=== PATIENT | female | born 1940 | race Caucasian/White ===

== ENCOUNTER → 2018-09-11 | Outpatient (REF) ==
[~2018-09-11] MED LIST: B COMPLEX1 TA2 PO; CALCIUM + D 5001 TAB PO; CALCIUM1 CAP PO; CARVEDILOL12.5 MG PO; CENTRUM SILVER1 CTB PO; CENTRUM SILVER1 TA2 PO; ESTRADIOL1 MG PO; FERROUS SU325 MG/TAB PO; IRON65 M1 PO; METFORMIN500 MG PO; NIACIN500 M3 PO; NORCO 325 MG-51 TAB PO; OCUVITE1 TA1 PO; QUINARETIC PO; SENOKOT8.6 MG PO; THERAGRAN1 TA1 PO; VITAMIN C BUFF500 MG PO; VITAMIN C500 MG PO
== END ==
LOC: ZMSC 13:18
DX: S61.502A Unspecified open wound of left wrist, initial encounter (principal)